=== PATIENT | male | born 1990 ===

== ENCOUNTER 2020-10-31 12:45 | Emergency (ER) | payer SELFPAY ==
[2020-10-31] MEDS ORDERED: cefTRIAXone 1 GM in Premix Bag 1 BAG IV ONE (13:47)
[2020-10-31] MEDS ORDERED: Diphtheria,Pertussis(Acell),Tetanus Vaccine 0.5 ML Syringe IM ONE (13:48)
[2020-10-31] MEDS ORDERED: Sodium Chloride 0.9% 1,000 ML IV ONE (14:05)
--- NOTE | 2020-10-31 14:15 | EDM.PDOC ---
ED HPI GENERAL MEDICAL PROBLEM - General Chief Complaint: Skin Complaint Stated Complaint: INFECTION IN RT INDEX FINGER Time Seen by Provider: 10/31/20 13:38 Source of Information: Reports: Patient History Limitations: Reports: No Limitations - History of Present Illness INITIAL COMMENTS - FREE TEXT/NARRATIVE: HISTORY AND PHYSICAL: History of present illness: Patient is a 30-year-old male who presents to the ED today with concern of right hand pointer finger infection that has been ongoing for the past 1 week. Patient states that he originally got a blister after he was cutting up a large amount of carrots 1 week ago. Patient states that shortly after that, the blister popped open and he began getting an infection of his finger. Patient states that he started taking amoxicillin that he had available to him at home over the past 3 to 4 days with worsening infection of his finger. Patient states that yesterday the area did drain open and he had improvement of the pain. Patient states, however, even after draining and being on antibiotics the infection has been spreading and is now involving his other finger and has moved along his hand and is now more painful again. Patient states he is not up-to-date on his tetanus and would like to update this today. Patient denies any trauma or injury. Patient denies any health history. Patient denies fever, chills, chest pain, shortness of breath, or cough. Denies headache, neck stiff ness, change in vision, syncope, or near syncope. Denies nausea, vomiting, abdominal pain, diarrhea, constipation, or dysuria. Has not noted any blood in urine or stool. Patient has been eating and drinking appropriately. Review of systems: As per history of present illness and below otherwise all systems reviewed and negative. Past medical history: As per history of present illness and as reviewed below otherwise noncontributory. Surgical history: As per history of present illness and as reviewed below otherwise no ncontributory. Social history: See social history for further information Family history: As per history of present illness and as reviewed below otherwise noncontributory. Physical exam: General: Patient is alert, oriented, and in no acute distress. Patient sitting comfortably on exam table. HEENT: Atraumatic, normocephalic, pupils equal and reactive bilaterally, negative for conjunctival pallor or scleral icterus, mucous membranes moist, TMs normal bilaterally, throat clear, neck supple, nontender, trachea midline. No drooling or trismus noted. No meningeal signs. No hot potato voice noted. Lungs: Clear to auscultation, breath sounds equal bilaterally, chest nontender. Heart: S1S2, regular rate and rhythm without overt murmur Abdomen: Soft, nondistended, nontender. Negative for masses or hepatosplenomegaly. Negative for costovertebral tenderness. Pelvis: Stable nontender. Genitourinary: Deferred. Rectal: Deferred. Skin: Intact, warm, dry. No lesions or rashes noted. Extremities: There is a 2cm open area that is shiny but not actively draining of the palmar aspect at the base of the right hand 2nd digit with a large area of surrounding cellulitis with erythema/edema that extends proximally into the palm of the hand and into the 3rd digit. Patient has limited ROM of the 2nd digit due to edema but does have intact sensation to light and deep touch of all digits of the right hand. Full ROM of all other digits of the RUE with capillary refill <2 seconds for all digits. Otherwise, Atraumatic, negative for cords or calf pain. Neurovascular unremarkable. Neuro: Awake, alert, oriented. Cranial nerves II through XII unremarkable. Cerebellum unremarkable. Motor and sensory unremarkable throughout. Exam nonfocal. Notes: I did call and speak to Dr. Britt, the hand specialist at [facility] in [place], and images of patients hand were sent to him. He requests that patient be transferred to [facility] for surgery consideration/further evaluation and treatment after completion of antibiotics. Patient was offered ambulance transfer but requests to transfer via private vehicle. I did call and speak to Dr. Jaime, [facility] to inform him that Dr. Britt accepted transfer and to expect patients arrival. Voices understanding and is agreeable to plan of care. Denies any further questions or concerns at this time. Diagnostics: CBC, CMP, Hand XR, Lactate, Blood culture x 2 Therapeutics: Rocephin, Vancomycin, NS Impression: Hand/finger cellulitis, right Plan: Transfer to Dr. Britt, hand surgeon, Dr. Jaime, ER, [facility] via private vehicle. Definitive disposition and diagnosis as appropriate pending reevaluation and review of above. Right index finger Pain Score (Numeric/FACES): 5 - Related Data Allergies Allergy/AdvReac Type Severity Reaction Status Date / Time No Known Allergies Allergy Verified 10/31/20 13:31 Home Meds: Home Meds . [No Known Home Meds] 10/31/20 [History] Past Medical History - Infectious Disease History Infectious Disease History: Reports: None Social & Family History - Family History Family Medical History: No Pertinent Family History - Tobacco Use Tobacco Use Status *Q: Never Tobacco User - Caffeine Use Caffeine Use: Reports: None - Recreational Drug Use Recreational Drug Use: No ED ROS GENERAL - Review of Systems Review Of Systems: Comprehensive ROS is negative, except as noted in HPI. ED EXAM, SKIN/RASH Exam: See Below (see dictation) Course - Vital Signs Last Recorded V/S: Last Vital Signs Temp 98.4 F 10/31/20 16:40 Pulse 99 10/31/20 16:40 Resp 16 10/31/20 16:40 BP 123/52 L 10/31/20 16:40 Pulse Ox 99 10/31/20 16:40 - Orders/Labs/Meds Orders: Active Orders 24 hr Category Date Time Status CULTURE BLOOD [BC] Stat Lab 10/31/20 14:27 Received CULTURE BLOOD [BC] Stat Lab 10/31/20 14:36 Received Blood Culture x2 Reflex Set [OM.PC] Stat Oth 10/31/20 14:03 Ordered Labs: Laboratory Tests 10/31/20 10/31/20 10/31/20 Range/Units 14:00 14:00 14:00 WBC 12.07 H (4.0-11.0) K/uL RBC 5.19 (4.50-5.90) M/uL Hgb 14.9 (13.0-17.0) g/dL Hct 45.4 (38.0-50.0) % MCV 87.5 (80.0-98.0) fL MCH 28.7 (27.0-32.0) pg MCHC 32.8 (31.0-37.0) g/dL RDW Std Deviation 42.2 (28.0-62.0) fl RDW Coeff of Nely 13 (11.0-15.0) % Plt Count 202 (150-400) K/uL MPV 11.00 (7.40-12.00) fL Neut % (Auto) 76.6 (48.0-80.0) % Lymph % (Auto) 14.9 L (16.0-40.0) % Cedar % (Auto) 7.4 (0.0-15.0) % Eos % (Auto) 0.9 (0.0-7.0) % Baso % (Auto) 0.2 (0.0-1.5) % Neut # (Auto) 9.3 H (1.4-5.7) K/uL Lymph # (Auto) 1.8 (0.6-2.4) K/uL Cedar # (Auto) 0.9 H (0.0-0.8) K/uL Eos # (Auto) 0.1 (0.0-0.7) K/uL Baso # (Auto) 0.0 (0.0-0.1) K/uL Nucleated RBC % 0.0 /100WBC Nucleated RBCs # 0 K/uL Lactate 1.0 (0.20-2.00) mmol/L Sodium 138 (136-148) mmol/L Potassium 3.9 (3.5-5.1) mmol/L Chloride 101 (98-107) mmol/L Carbon Dioxide 31.0 (21.0-32.0) mmol/L BUN 16 (7.0-18.0) mg/dL Creatinine 1.3 (0.8-1.3) mg/dL Est Cr Clr Drug Dosing 74.98 mL/min Estimated GFR (MDRD) > 60.0 ml/min Glucose 83 (74-106) mg/dL Calcium 9.6 (8.5-10.1) mg/dL Total Bilirubin 0.7 (0.2-1.0) mg/dL AST 22 (15-37) IU/L ALT 33 (14-63) IU/L Alkaline Phosphatase 69 (46-116) U/L Total Protein 8.5 H (6.4-8.2) g/dL Albumin 4.0 (3.4-5.0) g/dL Globulin 4.5 H (2.6-4.0) g/dL Albumin/Globulin Ratio 0.9 (0.9-1.6) Meds: Medications Discontinued Medications Generic Name Dose Route Start Last Admin Trade Name Freq PRN Reason Stop Dose Admin Diphtheria/Tetanus/Acell Pertussis 0.5 ml 10/31/20 13:48 10/31/20 14:03 Adacel IM 10/31/20 13:49 0.5 ml .ONCE ONE Administration Ceftriaxone Sodium/Dextrose 1 50 mls @ 100 mls/hr 10/31/20 13:47 10/31/20 14:02 gm/ Premix IV 10/31/20 14:16 100 mls/hr ONETIME ONE Administration Vancomycin HCl 1 gm/ Sodium 250 mls @ 166 mls/hr 10/31/20 14:03 10/31/20 15:11 Chloride IV 10/31/20 15:33 Not Given ONETIME ONE Sodium Chloride 1,000 mls @ 999 mls/hr 10/31/20 14:05 10/31/20 14:38 Normal Saline IV 10/31/20 15:05 999 mls/hr STAT ONE Administration Vancomycin HCl 1 gm/ Sodium 250 mls @ 250 mls/hr 10/31/20 15:01 10/31/20 15:33 Chloride IV 10/31/20 15:02 250 mls/hr ONETIME ONE Administration Departure - Departure Time of Disposition: 04:00 Disposition: DC/Tfer to [facility] 02 Clinical Impression: Cellulitis of hand - Discharge Information Referrals: PCP,None [Primary Care Provider] - Forms: ED Department Discharge Additional Instructions: Transfer to [facility] Emergency Room to Dr. Jaime/Dr. Britt Go straight to the Emergency Room at [facility] in [address] [place] [address] PH: [phone] Sepsis Event Note (ED) - Evaluation Sepsis Screening Result: No Definite Risk - Focused Exam Vital Signs: Vital Signs Temp Pulse Resp BP Pulse Ox 10/31/20 16:40 98.4 F 99 16 123/52 L 99 10/31/20 13:28 98.3 F 73 18 115/57 L 98 - My Orders Last 24 Hours: My Active Orders 10/31/20 14:03 Blood Culture x2 Reflex Set [OM.PC] Stat 10/31/20 14:27 CULTURE BLOOD [BC] Stat 10/31/20 14:36 CULTURE BLOOD [BC] Stat - Assessment/Plan Last 24 Hours: My Active Orders 10/31/20 14:03 Blood Culture x2 Reflex Set [OM.PC] Stat 10/31/20 14:27 CULTURE BLOOD [BC] Stat 10/31/20 14:36 CULTURE BLOOD [BC] Stat
[2020-10-31 14:41] LABS: BLOOD UREA NITROGEN,BUN 16 mg/dL (7.0-18.0); CHLORIDE,CL 101 mmol/L (98-107); GLUCOSE RANDOM 83 mg/dL (74-106); POTASSIUM,K 3.9 mmol/L (3.5-5.1); SODIUM,NA 138 mmol/L (136-148)
--- NOTE | 2020-10-31 15:20 | CR ---
Indication: Infections set in digit. Nacho osteo. Rule out gas. Technique: A total of 3 images of the right hand were acquired. Comparison: None Findings: Bones: Alignment is normal. No fractures or bone lesions. Joint spaces: Unremarkable. Soft tissues: Soft tissue abnormality of the index finger is probably related to infection. I see no gas within soft tissues or radiopaque foreign body. An opacity overlying the base is probably bandage material Impression: There is no evidence of osteomyelitis by plain film. Soft tissue abnormality likely related to infection. No gas within soft tissues or definite radiopaque foreign body within this finger Dictated by Alin Clarke MD @ Oct 31 2020 3:17PM Signed by Dr. Alin Clarke @ Oct 31 2020 3:19PM
== END 2020-10-31 16:51 ==
LOC: EDBD 12:45 → MW.ED 12:45
DX: L03.113 Cellulitis of right upper limb (principal); Z23 Encounter for immunization
CPT/HCPCS: 36415; 73130; 80053; 83605; 85025; 87040; 90471; 90715; 96365; 96367; 99284; J0696; J3370; J7030; J7050; 99283